=== PATIENT | female | born 1955 | race Caucasian/White ===

== ENCOUNTER 2017-11-25 09:21 | Day surgery (SDC) | payer MEDICARE, MEDICAID ==
[2017-11-24 16:36] LABS: BASOPHILS % (AUTO) 0.2 % (0-1); EOSINOPHILS # (AUTO) 0.2 X10'3 (0-0.9); EOSINOPHILS % (AUTO) 1.4 % (0-6); HEMATOCRIT 41.9 % (35.0-45.0); HEMOGLOBIN 14.1 g/dl (12.0-16.0); LYMPHOCYTES # (AUTO) 1.7 X10'3 (1.1-4.8); LYMPHOCYTES % (AUTO) 14.7 % (21-51); MEAN CORPUSCULAR HEMOGLOBIN 27.6 PG (27.0-31.0); MEAN CORPUSCULAR HGB CONC 33.6 % (33.0-36.5); MEAN CORPUSCULAR VOLUME 82.1 FL (78-98); MEAN PLATELET VOLUME 7.7 FL (7.4-10.4); MONOCYTES # (AUTO) 0.3 X10'3 (0-0.9); MONOCYTES % (AUTO) 2.8 % (2-12); NEUTROPHILS # (AUTO) 9.2 X10'3 (1.8-7.7); NEUTROPHILS % (AUTO) 80.9 % (42-75); PLATELET COUNT 356 X10'3 (140-440); RED CELL DISTRIBUTION WIDTH 14.7 % (11.5-14.5); WHITE BLOOD COUNT 11.4 X10'3 (4.5-11.0)
[2017-11-24 16:50] LABS: ALBUMIN 3.7 G/DL (3.4-5.0); ANION GAP 10 (8-16); BLOOD UREA NITROGEN 16 MG/DL (7-18); BUN/CREATININE RATIO 22.2 (6.6-38.0); CALCIUM 9.6 MG/DL (8.5-10.1); CHLORIDE 100 MMOL/L (99-107); CREATININE 0.72 MG/DL (0.40-0.90); GLUCOSE 135 MG/DL (70-104); POTASSIUM 3.9 MMOL/L (3.5-5.1); SODIUM 139 MMOL/L (135-145); eGFR 83 ML/MIN
[2017-11-24 16:54] LABS: INR 0.9 INR; PARTIAL THROMBOPLASTIN TIME 26 SECONDS (22-32); PROTHROMBIN TIME 9.8 SECONDS (9.0-12.0)
[~2017-11-25] VITALS: Ht 172.7 cm; Wt 142.4 kg
[2017-11-25] VITALS (10 sets, daily range): BP systolic 112–158; BP diastolic 67–88
[2017-11-25] MEDS ORDERED: normal saline 1000ml 1,000 ML IV SCH (09:35)
[2017-11-25] MEDS ORDERED: LORazepam 0.5 MG tablet PO PRN (09:35)
[2017-11-25] MEDS ORDERED: diphenhydrAMINE 25mg capsule PO PRN (09:35)
[2017-11-25] MEDS ORDERED: METF500T PO (09:58)
[2017-11-25] MEDS ORDERED: BUDE180A INH (09:58)
[2017-11-25] MEDS ORDERED: ASPI-1265 PO (09:58)
[2017-11-25] MEDS ORDERED: IBUP-1984 PO (09:58)
[2017-11-25] MEDS ORDERED: HYDR25TA4 PO (09:58)
[2017-11-25] MEDS ORDERED: MONT10TA24 PO (09:58)
[2017-11-25] MEDS ORDERED: TIOT18CA3 PO (09:58)
[2017-11-25] MEDS ORDERED: ATR0.5NEB IH (09:58)
[2017-11-25] MEDS ORDERED: LORA10TA7 PO (09:58)
[2017-11-25] MEDS ORDERED: BECL8.7A7 INH (09:58)
[2017-11-25] MEDS ORDERED: BENA20TA2 PO (09:58)
[2017-11-25] MEDS ORDERED: acetylcysteine 200 MG/ml 4ml vial PO SCH (10:07)
[2017-11-25] MEDS ORDERED: fentaNYL/PF 50MCG/1 ML 2ML syringe ONE (12:05)
[2017-11-25] MEDS ORDERED: midazolam 2 mg/2 ml injection ONE (12:05)
[2017-11-25] MEDS ORDERED: heparin 1,000unit/ml 10ml vial 10 ML ONE (12:43)
[2017-11-25] MEDS ORDERED: nitroGLYCERIN-Tridil 50MG/D5W 250 ML IV ONE (12:43)
[2017-11-25] MEDS ORDERED: iohexol 350 MG/ML 50ML vial IV ONE (12:43)
[2017-11-25 13:31] LABS: ISTAT Hct MIX 38 %PCV (35-48); ISTAT O2 SATURATION MIX VENOUS 73 % (60-80); ISTAT SOURCE MIX
[2017-11-25 13:31] LABS: ISTAT HGB ART 13.3 g/dl (12.0-16.0); ISTAT Hct ART 39 %PCV (35-48); ISTAT O2 SATURATION ARTERIAL 95 % (95-98); ISTAT SOURCE ART
[2017-11-25] MEDS ORDERED: HYDROcodone/acetaminophen 10/325mg tab PO ONE (16:45)
[2017-11-25] MEDS ORDERED: ibuprofen tablet 400 MG TABLET PO ONE (17:00)
== END 2017-11-25 18:10 | disposition home or self-care (01) ==
LOC: SSTAY O 09:21
PROVIDERS: ATTEND Internal Medicine Cardiovascular Disease
DX: I25.10 Atherosclerotic heart disease of native coronary artery without angina pectoris (principal); E11.9 Type 2 diabetes mellitus without complications; I10 Essential (primary) hypertension; E78.5 Hyperlipidemia, unspecified; E66.9 Obesity, unspecified; G47.33 Obstructive sleep apnea (adult) (pediatric); J44.9 Chronic obstructive pulmonary disease, unspecified; Z82.49 Family history of ischemic heart disease and other diseases of the circulatory system
CPT/HCPCS: 36415; 80048; 82803; 82948; 85014; 85025; 85610; 85730; 93005; 93460; 99152; 99153; C1760; J1644; J2250; J3010; J3490; J7030; Q0163; Q9967; A4620; A6257; C1769